=== PATIENT | male | born 1970 | race African-American/Black ===

== ENCOUNTER → 2021-07-26 | Outpatient (CLI) | payer MEDICARE, OTHER ==
--- NOTE | 2021-07-26 15:58 | RAD ---
EXAM: XR CHEST 2V 07/26/2021 2:26 PM CLINICAL INDICATION: Cough, asthma COMPARISON: None TECHNIQUE: PA and lateral views of the chest FINDINGS: The heart is normal in size. Lungs are adequately expanded. There is no consolidation, ple ural effusion, or pneumothorax. No acute osseous abnormality. IMPRESSION: No acute cardiopulmonary abnormality. Electronically signed by: Tamika Duarte MD (07/26/2021 3:55 PM) [id number]
== END ==
LOC: RAD 14:15
PROVIDERS: ATTEND Nurse Practitioner
DX: R05.9 Cough, unspecified (principal)
CPT/HCPCS: 71046